=== PATIENT | male | born 1950 | race Caucasian/White ===

== ENCOUNTER 2018-02-15 21:58 | Emergency (ER) | payer MEDICARE, OTHER, SELFPAY ==
[2018-02-15 21:58] VITALS: BP 149/78; PULSE 108; RESP 20; TEMP 36.7; O2SAT 97; BMI 24.7
--- NOTE | 2018-02-15 22:24 | ED.RN ---
NO OLD EKGS IN MUSE.
[2018-02-15 22:39] LABS: Absolute Lymphocyte Count 2.93 X10^3/ul (0.83-4.51); Absolute Neutrophil Count 2.7 X10^3/uL (2.0-7.7); Basophil# 0.06 X10^3/uL; Basophil% 0.9 % (0-1); Eosinophil# 0.22 X10^3/uL; Eosinophils% 3.3 % (0-5); Hematocrit 39.4 % (40-54); Hemoglobin 14.1 g/dl (13.0-16.5); Lymphocyte # 2.93 X10^3/ul (4.0); Lymphocyte % 43.4 % (19-41); Mean Corp Hgb Conc 35.8 g/gl (32-36); Mean Corpuscular Hgb 33.2 pg (27.0-32.0); Mean Corpuscular Volume 92.7 fL (80-94); Mean Platelet Vol. 9.4 fl (6.2-12.0); Monocyte% 11.9 % (0-10); Neutrophil # 2.73 X10^3/uL (2.7-7.7); Neutrophil % 40.4 % (47-70); Platelet Count 228 K/mm3 (150-450); RBC Distribution Width CV 11.8 % (11.6-14.6); RBC Distribution Width SD 39.6 fl (35.1-43.9); Red Blood Count 4.25 M/mm3 (4.6-6.2); White Blood Count 6.8 K/mm3 (4.4-11.0)
[2018-02-15 22:41] LABS: POSITIVE COUNT NO; POSITIVE DIFFERENTIAL NO; POSITIVE MORPHOLOGY NO
[2018-02-15 22:47] LABS: Anion Gap 7 (5-15); BUN 16 mg/dL (7-18); BUN/Creat Ratio 21.9 RATIO (10-20); Calcium,Total 9.1 mg/dL (8.5-10.1); Chloride 95 mmol/L (98-107); Creatinine, Serum 0.73 mg/dL (0.70-1.30); EST Glomerular Filtration Rate 114 mL/min (>60); Est Glom Filt Rate - Afr Amer 138 mL/min (>60); Estimated Creatinine Clearance 104.17 ml/min; Glucose 343 mg/dL (74-106); Sodium Level 132 mmol/L (136-145)
--- NOTE | 2018-02-15 23:25 | RAD_ITS ---
STUDY: X-RAY CHEST REASON FOR EXAM: Male, 67 years old. Chest pain TECHNIQUE: Frontal and lateral views of the chest. COMPARISON: None. FINDINGS: The lungs are clear and expanded. There is no demonstrated pleural abnormality. Normal size heart. Normal mediastinum and belkys. Normal visualized pulmonary arteries. Normal visualized aortic arch and descending thoracic aorta. Normal visualized thoracic spine. Normal visualized ribs, clavicles, and shoulders. There is no demonstrated abnormality of the visualized soft tissue structures of the upper abdomen. RAD/Chest PA and Lateral IMPRESSION: Normal x-ray examination of the chest. Electronically Signed: Raulito Christian MD at 1:15 EDT Tel , Service support ,
[2018-02-15 23:39] LABS: D-Dimer Quantitative (DVT/PE) 0.78 FEU/ug/m (0.27-0.49)
--- NOTE | 2018-02-15 23:41 | ED.RN ---
DR MARTE NOTIFIED OF DDIMER RESULTS
--- NOTE | 2018-02-15 23:50 | CT_ITS ---
STUDY: CTA CHEST REASON FOR EXAM: Male, 67 years old. Chest pain, elevated d-dimer RADIATION DOSAGE (If Supplied By Facility): CTDIvol = ( 12.42 ) mGy, DLP = ( 568.07 ) mGycm TECHNIQUE: The examination was performed with the intravenous administration of 100 ml of Isovue 370 contrast material. Post-processing of the angiographic images was performed, with multiplanar reformation and 3D reconstruction. Individualized dose optimization techniques were used for this CT. COMPARISON: None. FINDINGS: Normal enhancement of the main pulmonary artery and right and left pulmonary arteries. Normal enhancement of the bilateral peripheral pulmonary arteries. There is no demonstrated pulmonary embolism. Normal thoracic aorta and visualized great vessels. There is no demonstrated aortic dissection. Normal heart and pericardium. Normal mediastinum. Normal hilar regions. Normal visualized trachea and bronchi. The lungs are hyper expanded, with flattening of the hemidiaphragms. Noncalcified small triangular nodule right lower lobe 0.4 cm image 86 series 2. Normal pleura. Normal chest wall structures. There are degenerative changes of spine and shoulder joints Normal visualized upper abdomen. CT/CTA Chest W/WO Contrast IMPRESSION: Normal CTA chest examination, without a demonstrated pulmonary embolism or arterial dissection. Small noncalcified nodular density right lower lobe triangular informed, possible scarring. Comparison was studies performed elsewhere or follow-up recommended. CT Follow-Up of Small Pulmonary Nodules Nodule size is average of length and width. Nodule size. Low risk patient. Non smoking history. <4mm No follow-up needed (risk of malignancy <1%) 4-6mm Follow up CT at 12 months, if unchanged, no further imaging needed. 6-8mm Initial follow up at 6-12 month, then at 18-24 months if no changes. > 8mm Follow-up CT at 3, 9, and 24 months, dynamic contrast CT, PET and /or biopsy. Nodule size. High risk patients. Smoking history. <4mm Follow-up 12 months: if unchanged, no further follow-up. 4-6mm Initial follow-up at 6-12 months,then at 18-24 months if no change. 6-8mm Initial follow-up at 3-6months, then at 9-12 and 24 months if no change. >8mm Same as for low risk patient. [employer] STATEMENT Electronically Signed: Marie Child MD at 1:30 EDT , Service support ,
[2018-02-16 00:09] VITALS: BP 165/99; PULSE 77; RESP 15; O2SAT 97
--- NOTE | 2018-02-16 00:09 | EKG12_ITS ---
Test Reason : PALPATATIONS Blood Pressure : / mmHG Vent. Rate : 108 BPM Atrial Rate : 108 BPM P-R Int : 178 ms QRS Dur : 086 ms QT Int : 336 ms P-R-T Axes : 070 049 076 degrees QTc Int : 450 ms Sinus tachycardia with occasional Premature ventricular complexes Possible Left atrial enlargement Borderline ECG Confirmed by ELIECER MICHAUD, JESSICA ([id number]), newspaper or periodical editor KIRA YE ([id number]) on 02/20/2018 3:45:35 PM Referred By: GABRIEL Confirmed By:JESSICA GONZÁLES MD
--- NOTE | 2018-02-16 00:59 | ED.VISSUMM ---
- ER Visit Summary Date of Service: 02/16/18 Chief Complaint: Palpitations History of Present Illness: The patient is a 67 M patient presenting for evaluation secondary to heart palpitations. Patient reports that approximately 6 days ago he was under general anesthesia for oral surgery. Patient reports that today late this afternoon he had a sudden onset heart palpitations. He reports that these are intermittent and have no exacerbating relieving factors. He denies that there is any sort of pain associated with them no shortness of breath or fevers. He denies any sort of weight loss weight gain changes in appetite nausea vomiting or any other infectious signs or symptoms. He does endorse dental pain from his surgery which is been taking [place] for. He denies that he has any history of hypertension diabetes high cholesterol family history of heart disease or smoking. He denies that he is ever had any history of DVT or PE. Physical Examination: Vital signs are within normal limits, patient is afebrile. General: Patient is well-nourished well-developed and in no acute distress. Head: Normocephalic, atraumatic Eyes: Pupils equal round and reactive bilaterally, extra occular motion intact bialterally ENT: Moist mucous membranes, patient has multiple stitches along his gum lines but no evidence of obvious abscess or drainage Neck: Supple, no lymphadenopathy, no JVD, no meningismus CVS: Heart regular rate and rhythm, extrasystoles are noted, no murmurs, rubs or gallops, radial pulses 2+ bilaterally Resp: Respirations nondistressed, lung sounds clear bilaterally Abdomen: Soft, nontender, nondistended, no palpable masses, normal bowel sounds Back: Nontender Extremities: Nontender, atraumatic, active full range of motion, no peripheral edema Skin: warm, no rashes, no petechia Neuro: Alert and oriented x 4, CN 2-12 intact, no lateralizing neurological defecits Psyc: Normal affect Test Results: Sinus rhythm of [address] segments, normal T waves, large P waves indicating atrial enlargement and occasional PVCs no evidence of acute ischemia or arrhythmia. CBC chemistry troponin unremarkable, d-dimer found to be elevated. CT angiogram of the chest found to be negative for PE but does show evidence of a pulmonary nodule Emergency Department Course and Treatment: Patient presented for evaluation secondary to palpitations. Patient's workup was unremarkable except for that he was having frequent PVCs on telemetry monitoring. He did have an elevated d-dimer which was obtained secondary to his recent surgery, so a CT angiogram was performed to rule out PE and was found to be negative. It did show a pulmonary nodule which the patient was informed of. Patient continues to be symptomatic with his PVCs, but is not having any runs of nonsustained V. tach or any couplets. I discussed the patient's case with cardiology who recommended placing the patient on a low-dose of beta-curry and follow-up as an outpatient. Patient was given a dose of metoprolol, and will be discharged with a prescription. Disposition: Discharge Impression: 1. Symptomatic PVCs 2. Incidental pulmonary nodule This note was generated with [employer] dictation software. It may contain incorrect words, spelling, and punctuation that were not noted in review of the chart prior to signing ED Disposition - Plan for ED Patient: Disposition: Home or Assisted Living Chief Complaint: Palpitations Diagnosis: Frequent PVCs Instructions: Premature Ventricular Contractions Prescriptions: Metoprolol Tartrate 25 mg PO BID #28 tab Referrals: Peyman Fernandez MD [STAFF PHYSICIAN] - As soon as possible
[2018-02-16 01:07] VITALS: BP 140/71; PULSE 81; RESP 12; O2SAT 95
[2018-02-16 02:48] VITALS: BP 145/70; PULSE 90; RESP 13; O2SAT 96
[2018-02-16] MEDS: Metoprolol Tartrate 25 MG Tablet PO (03:05)
== END 2018-02-16 03:06 | disposition home or self-care (01) ==
PROVIDERS: Emergency Provider Emergency Medicine
DX: I49.3 Ventricular premature depolarization (principal); R91.1 Solitary pulmonary nodule; K08.89 Other specified disorders of teeth and supporting structures; Z98.890 Other specified postprocedural states; Z79.2 Long term (current) use of antibiotics; Z79.891 Long term (current) use of opiate analgesic
CPT/HCPCS: 71046; 71275; 80048; 84484; 85025; 85379; 93005; 99282; Q9967; A4216

== ENCOUNTER → 2018-04-05 08:06 | Outpatient (CLI) | payer MEDICARE, OTHER, SELFPAY ==
[2018-04-05 10:37] LABS: AST(SGOT) 14 U/L (15-37); Alanine Aminotransfer ALT/SGPT 21 U/L (16-61); Albumin, Serum 3.5 g/dL (3.2-5.0); Alkaline Phosphatase 64 U/L (45-117); Anion Gap 5 (5-15); BUN 11 mg/dL (7-18); Calcium,Total 8.6 mg/dL (8.5-10.1); Chloride 101 mmol/L (98-107); Cholesterol 239 mg/dL (200); Creatinine, Serum 0.73 mg/dL (0.70-1.30); EST Glomerular Filtration Rate 114 mL/min (>60); Est Glom Filt Rate - Afr Amer 138 mL/min (>60); Globulin 3.5 g/dL (2.2-4.2); Glucose 254 mg/dL (74-106); High Density Lipoprotein 62 mg/dL; Potassium 4.2 mmol/L (3.5-5.1); Sodium Level 137 mmol/L (136-145); Triglycerides 113 mg/dL; Very Low Density Lipoprotein 23 mg/dL (5-40)
--- OUTSIDE RECORDS SUMMARY | 2018-05-31 13:11 | XMS RPT_ITS ---
:1950 Author Organization OHIP Care Team Providers Name Role Phone Primay Care Physicia, No Primary Care Unavailable Walter Hernandez Attending Unavailable Rayray Martinez Attending Unavailable Rayray Martinez Primary Care Unavailable PROBLEMS PROBLEMS No Problem Records FoundPROCEDURES PROCEDURES No Procedure Records FoundRESULTS RESULTS COMPREHENSIVE METABOLIC Collected: 04/05/2018 Status: F [facility]07 AM [facility] REPOSITORY TYPE CODE TESTS RESULT OUT OF RANGE REFERENCE UNITS LAB L501.0100 74-106 mg/dL High GLU 254 Result Comment: Glucose result greater than or equal to 200 mg/dL suggests DIABETES MELLITUS per A.D.A. criteria. Please note revised GLUCOSE reference range effective 2017. LAB L501.1000 7-18 mg/dL Normal BUN 11 LAB L501.1100 0.70-1.30 mg/dL Normal CREAT,SERUM 0.73 Result Comment: The validity of the calculated GFR AND GFRAA in patients over 70 years has not been determined. Clinical correlation is essential. LAB L501.1110 >60 mL/min Normal EST GFR 114 Result Comment: Non- GFR Calc LAB L501.1115 >60 mL/min Normal EST GFR - AA 138 Result Comment: GFR Calc LAB L501.1300 10-20 RATIO Normal BUN/CRE 15.0 LAB L501.1500 6.4-8.2 g/dL T Normal PROT 7.0 LAB L501.1800 3.2-5.0 g/dL Normal ALB 3.5 LAB L501.1950 2.2-4.2 g/dL Normal GLOB 3.5 LAB L501.2000 0.9-2.4 RATIO Normal A/G 1.0 LAB L501.2200 8.5-10.1 mg/dL CA Normal 8.6 LAB L501.4100 15-37 U/L Low AST 14 LAB L501.4305 45-117 U/L Normal ALK P 64 LAB L501.4405 16-61 U/L Normal ALT 21 LAB L501.4600 0.20-1.00 mg/dL T Normal BILI 0.60 LAB L501.5300 136-145 mmol/L NA Normal 137 LAB L501.5600 3.5-5.1 mmol/L K Normal 4.2 LAB L501.5900 98-107 mmol/L CL Normal 101 LAB L501.6100 21.0-32.0 mmol/L Normal CO2 31.0 LAB L501.6200 5-15 Normal GAP 5 Performed By: #### L500.4050, L500.4100, L501.9520, L509.3000 #### [facility] [address] [facility]. [place], [place], [id number] LIPID PROFILE Collected: 04/05/2018 Status: F Source: [facility] 8:07 AM [facility] REPOSITORY TYPE CODE TESTS RESULT OUT OF RANGE REFERENCE UNITS LAB L501.4900 200 mg/dL High CHOL 239 Result Comment: <200 mg/dL Desirable 200-240 mg/dL Borderline >240 mg/dL High Risk LAB L501.5000 mg/dL Normal TRIG 113 Result Comment: The drugs N-Acetylcysteine and Metamizole may falsely depress this assay. Serum Triglycerides Reference Interval Normal <150 mg/dL Borderline high 150 - 199 mg/dL High 200 - 499 mg/dL Very High > or = 500 mg/dL LAB L501.6400 mg/dL Normal HDL 62 Result Comment: The drugs N-Acetylcysteine and Metamizole may falsely depress this assay. Reference Range HDL <40 mg/dL Low HDL Cholesterol HDL >or= 60 mg/dL High HDL Cholesterol LAB L501.6500 0-130 mg/dL High LDL 154 LAB L501.6600 5-40 mg/dL Normal VLDL 23 Performed By: #### L500.4050, L500.4100, L501.9520, L509.3000 #### [facility] [address] [facility] [place], [address] THYROID STIM HORMONE Collected: 04/05/2018 Status: F Source: [facility] ([facility]) 8:07 AM [facility] REPOSITORY TYPE CODE TESTS RESULT OUT OF RANGE REFERENCE UNITS LAB L501.9520 0.358-3.74 uIU/mL Normal TSH 2.80 Performed By: #### L500.4050, L500.4100, L501.9520, L509.3000 #### [facility] [address] [facility] [place], [address] TESTOSTERONE, SERUM TOTAL Collected: 04/05/2018 Status: F Source: [facility] 8:07 AM [facility] REPOSITORY TYPE CODE TESTS RESULT OUT OF REFERENCE UNITS RANGE LAB L509.3000 ng/dL Testosterone Normal 288.33 Result Comment: NORMAL REFERENCE RANGES MALE AGE <50 123.06 - 813.86 ng/dL MALE AGE >50 89.98 - 780.10 ng/dL FEMALE PREMENOPAUSE AGE 21 - 60 9.01 - 47.94 ng/dL FEMALE POSTMENOPAUSE AGE 45 - 89 <7.00 - 45.62 ng/dL REFERENCE RANGE AND METHODOLOGY CHANGED 04/27/2017 Performed By: #### L500.4050, L500.4100, L501.9520, L509.3000 #### [facility] [address] [facility] [place], [address] 12 LEAD ELECTROCARDIOGRAM Observed: 02/20/2018 Status: F Source: [facility] 3:45 PM [facility] REPOSITORY [facility] Cardiovascular Services [address] [place] [address] 12 Lead EKG 02/15/18 2202 MR#: [id number] Acct: [id number] Name: AMINA CROWELL Rep #: [id number] : 1950 67 From: Nikolai Gonzáles MD Attending Dr: Status: DEP ER Ordering Dr: Walter Hernandez MD Date: 02/16/18 Location: ED Sex: M C Admitted: Test Reason : PALPATATIONS Blood Pressure : / mmHG Vent. Rate : 108 BPM Atrial Rate : 108 BPM P-R Int : 178 ms QRS Dur : 086 ms QT Int : 336 ms P-R-T Axes : 070 049 076 degrees QTc Int : 450 ms Sinus tachycardia with occasional Premature ventricular complexes Possible Left atrial enlargement Borderline ECG Confirmed by ELIECER MICHAUD, NIKOLAI ([id number]), editorial clerk KIRA YE ([id number]) on 02/20/2018 3:45:35 PM Referred By: LD Confirmed By:NIKOLAI GONZÁLES MD 02/20/18 1545 Date Nikolai Gonzáles MD CC: No Primary Care Physician; Walter Hernandez Signed EMERGENCY DEPARTMENT Observed: 02/16/2018 Status: F Source: [facility] SUMMARY 7:01 AM [facility] Medical Records Department [address] [place] [address] Emergency Department Summary 02/16/18 0059 MR#: [id number] Acct: [id number] Name: AMINA CROWELL Rep #: [id number] : 1950 67 From: Walter Hernandez MD PCP: Care Physician, No Primary Status: DEP ER - ER Visit Summary Date of Service: 02/16/18 Chief Complaint: Palpitations History of Present Illness: The patient is a 67 M patient presenting for evaluation secondary to heart palpitations. Patient reports that approximately 6 days ago he was under general anesthesia for oral surgery. Patient reports that today late this afternoon he had a sudden onset heart palpitations. He reports that these are intermittent and have no exacerbating relieving factors. He denies that there is any sort of pain associated with them no shortness of breath or fevers. He denies any sort of weight loss weight gain changes in appetite nausea vomiting or any other infectious signs or symptoms. He does endorse dental pain from his surgery which is been taking [place] for. He denies that he has any history of hypertension diabetes high cholesterol family history of heart disease or smoking. He denies that he is ever had any history of DVT or PE. Physical Examination: Vital signs are within normal limits, patient is afebrile. General: Patient is well-nourished well-developed and in no acute distress. Head: Normocephalic, atraumatic Eyes: Pupils equal round and reactive bilaterally, extra occular motion intact bialterally ENT: Moist mucous membranes, patient has multiple stitches along his gum lines but no evidence of obvious abscess or drainage Neck: Supple, no lymphadenopathy, no JVD, no meningismus CVS: Heart regular rate and rhythm, extrasystoles are noted, no murmurs, rubs or gallops, radial pulses 2+ bilaterally Resp: Respirations nondistressed, lung sounds clear bilaterally Abdomen: Soft, nontender, nondistended, no palpable masses, normal bowel sounds Back: Nontender Extremities: Nontender, atraumatic, active full range of motion, no peripheral edema Skin: warm, no rashes, no petechia Neuro: Alert and oriented x 4, CN 2-12 intact, no lateralizing neurological defecits Psyc: Normal affect Test Results: Sinus rhythm of [address] segments, normal T waves, large P waves indicating atrial enlargement and occasional PVCs no evidence of acute ischemia or arrhythmia. CBC chemistry troponin unremarkable, d-dimer found to be elevated. CT angiogram of the chest found to be negative for PE but does show evidence of a pulmonary nodule Emergency Department Course and Treatment: Patient presented for evaluation secondary to palpitations. Patient's workup was unremarkable except for that he was having frequent PVCs on telemetry monitoring. He did have an elevated d-dimer which was obtained secondary to his recent surgery, so a CT angiogram was performed to rule out PE and was found to be negative. It did show a pulmonary nodule which the patient was informed of. Patient continues to be symptomatic with his PVCs, but is not having any runs of nonsustained V. tach or any couplets. I discussed the patient's case with cardiology who recommended placing the patient on a low-dose of beta-curry and follow-up as an outpatient. Patient was given a dose of metoprolol, and will be discharged with a prescription. Disposition: Discharge Impression: 1. Symptomatic PVCs 2. Incidental pulmonary nodule This note was generated with Alticast dictation software. It may contain incorrect words, spelling, and punctuation that were not noted in review of the chart prior to signing ED Disposition - Plan for ED Patient: Disposition: Home or Assisted Living Chief Complaint: Palpitations Diagnosis: Frequent PVCs Instructions: Premature Ventricular Contractions Prescriptions: Metoprolol Tartrate 25 mg PO BID #28 tab Referrals: Peyman Fernandez MD [STAFF PHYSICIAN] - As soon as possible What to do if you have Problems For any increased pain, shortness of breath, bleeding, nausea or vomiting, chest pain, or any unexpected problems, contact your Primary Care Provider. Call [facility] ([phone]) or report to the closest Emergency Room. Call 911 if necessary. 02/16/18 0701 <Electronically signed by Walter Hernandez MD> Date Walter Hernandez MD Cosigner Signature (If Indicated): Date CC: No Primary Care Physician CTA CHEST W/WO Observed: 02/15/2018 Status: F Source: [facility] CONTRAST 11:50 PM [facility] REPOSITORY [facility] Imaging Services [address] [place] [address] CTA Chest W/WO Contrast MR#: [id number] Acct: [id number] Name: AMINA CROWELL Rep #: [id number] : 1950 M 67 From: Marie Child MD PCP: Care Physician, No Primary Status: REG ER Study: CTA Chest W/WO Contrast Date of Exam: 02/15/18 Exam# [id number] Ordering Dr: Walter Hernandez MD STUDY: CTA CHEST REASON FOR EXAM: Male, 67 years old. Chest pain, elevated d-dimer RADIATION DOSAGE (If Supplied By Facility): CTDIvol = ( 12.42 ) mGy, DLP = ( 568.07 ) mGycm TECHNIQUE: The examination was performed with the intravenous administration of 100 ml of Isovue 370 contrast material. Post-processing of the angiographic images was performed, with multiplanar reformation and 3D reconstruction. Individualized dose optimization techniques were used for this CT. COMPARISON: None. FINDINGS: Normal enhancement of the main pulmonary artery and right and left pulmonary arteries. Normal enhancement of the bilateral peripheral pulmonary arteries. There is no demonstrated pulmonary embolism. Normal thoracic aorta and visualized great vessels. There is no demonstrated aortic dissection. Normal heart and pericardium. Normal mediastinum. Normal hilar regions. Normal visualized trachea and bronchi. The lungs are hyper expanded, with flattening of the hemidiaphragms. Noncalcified small triangular nodule right lower lobe 0.4 cm image 86 series 2. Normal pleura. Normal chest wall structures. There are degenerative changes of spine and shoulder joints Normal visualized upper abdomen. CT/CTA Chest W/WO Contrast IMPRESSION: Normal CTA chest examination, without a demonstrated pulmonary embolism or arterial dissection. Small noncalcified nodular density right lower lobe triangular informed, possible scarring. Comparison was studies performed elsewhere or follow-up recommended. CT Follow-Up of Small Pulmonary Nodules Nodule size is average of length and width. Nodule size. Low risk patient. Non smoking history. <4mm No follow-up needed (risk of malignancy <1%) 4-6mm Follow up CT at 12 months, if unchanged, no further imaging needed. 6-8mm Initial follow up at 6-12 month, then at 18-24 months if no changes. > 8mm Follow-up CT at 3, 9, and 24 months, dynamic contrast CT, PET and /or biopsy. Nodule size. High risk patients. Smoking history. <4mm Follow-up 12 months: if unchanged, no further follow-up. 4-6mm Initial follow-up at 6-12 months,then at 18-24 months if no change. 6-8mm Initial follow-up at 3-6months, then at 9-12 and 24 months if no change. >8mm Same as for low risk patient. [employer] STATEMENT Electronically Signed: Marie Child MD at 1:30 EDT , Service support , CC: No Primary Care Physician; Walter Hernandez Manager Pest: Signed CHEST PA AND LATERAL Observed: 02/15/2018 Status: F Source: [facility] 11:14 PM [facility] REPOSITORY [facility] Imaging Services [address] [place], [place] [address] [address] Chest PA and Lateral MR#: [id number] Acct: [id number] Name: AMINA CROWELL Rep #: [id number] : 1950 M 67 From: Raulito Christian MD PCP: Care Physician, No Primary Status: REG ER Study: Chest PA and Lateral Date of Exam: 02/15/18 Exam# [id number] Ordering Dr: Walter Hernandez MD STUDY: X-RAY CHEST REASON FOR EXAM: Male, 67 years old. Chest pain TECHNIQUE: Frontal and lateral views of the chest. COMPARISON: None. FINDINGS: The lungs are clear and expanded. There is no demonstrated pleural abnormality. Normal size heart. Normal mediastinum and belkys. Normal visualized pulmonary arteries. Normal visualized aortic arch and descending thoracic aorta. Normal visualized thoracic spine. Normal visualized ribs, clavicles, and shoulders. There is no demonstrated abnormality of the visualized soft tissue structures of the upper abdomen. RAD/Chest PA and Lateral IMPRESSION: Normal x-ray examination of the chest. Electronically Signed: Raulito Christian MD at 1:15 EDT Tel , Service support , CC: No Primary Care Physician; Walter Hernandez Manager Pest: Signed CBC W/DIFF, AUTOMATED Collected: 02/15/2018 Status: F Source: [facility] 10:24 PM [facility] REPOSITORY TYPE CODE TESTS RESULT OUT OF RANGE REFERENCE UNITS LAB L100.1000 4.4-11.0 K/mm3 Normal WBC 6.8 LAB L100.1200 4.6-6.2 M/mm3 Low RBC 4.25 LAB L100.1300 13.0-16.5 g/dl Normal HGB 14.1 LAB L100.1400 40-54 % Low HCT 39.4 LAB L100.1500 80-94 fL Normal MCV 92.7 LAB L100.1600 27.0-32.0 pg High MCH 33.2 LAB L100.1700 32-36 g/gl Normal MCHC 35.8 LAB L100.1810 11.6-14.6 % Normal RDW CV 11.8 LAB L100.1820 35.1-43.9 fl Normal RDW SD 39.6 LAB L100.1900 150-450 K/mm3 Normal PLT 228 LAB L100.2000 6.2-12.0 fl Normal MPV 9.4 LAB L100.2100 47-70 % Low NEUT% 40.4 LAB L100.2200 19-41 % High LY% 43.4 LAB L100.2300 0-10 % High MONO% 11.9 LAB L100.2400 0-5 % Normal EO% 3.3 LAB L100.2500 0-1 % Normal BASO% 0.9 LAB L100.2550 0.0-0.9 % Normal IM GRAN % 0.100 Result Comment: IG% - Immature Granulocytes (promyelocytes, myelocytes and metamyelocytes) > 1% indicates that a LEFT SHIFT is Present. LAB L100.2620 2.0-7.7 X10 3/uL Normal Absolute Neut 2.7 LAB L100.2720 0.83-4.51 X10 3/ul Normal Absolute Lymph 2.93 Performed By: #### L100.0100 #### [facility] [address] [place], [place], [id number] BASIC METABOLIC Collected: 02/15/2018 Status: F Source: [facility] PROFILE (BMP) 10:24 PM [facility] REPOSITORY TYPE CODE TESTS RESULT OUT OF RANGE REFERENCE UNITS LAB L501.0100 74-106 mg/dL High GLU 343 Result Comment: Glucose result greater than or equal to 200 mg/dL suggests DIABETES MELLITUS per A.D.A. criteria. Please note revised GLUCOSE reference range effective 2017. LAB L501.1000 7-18 mg/dL Normal BUN 16 LAB L501.1100 0.70-1.30 mg/dL Normal CREAT,SERUM 0.73 Result Comment: The validity of the calculated GFR AND GFRAA in patients over 70 years has not been determined. Clinical correlation is essential. LAB L501.1110 >60 mL/min Normal EST GFR 114 Result Comment: Non- GFR Calc LAB L501.1115 >60 mL/min Normal EST GFR - AA 138 Result Comment: GFR Calc LAB L501.1255 ml/min Normal Estimated CRCL 104.17 LAB L501.1300 10-20 RATIO High BUN/CRE 21.9 LAB L501.2200 8.5-10 mg/dL .1 CA Normal 9.1 LAB L501.5300 136-14 mmol/L Low 5 NA 132 LAB L501.5600 3.5-5. mmol/L 1 K Normal 4.0 LAB L501.5900 98-107 mmol/L Low CL 95 LAB L501.6100 21.0-3 mmol/L 2.0 CO2 Normal 30.0 LAB L501.6200 5-15 GAP Normal 7 Performed By: #### L500.2500, L501.4010 #### [facility] [address] [place], [address] TROPONIN-I Collected: 02/15/2018 Status: F Source: [facility] 10:24 PM [facility] REPOSITORY TYPE CODE TESTS RESULT OUT OF RANGE REFERENCE UNITS LAB L501.4010 <0.045 ng/mL Normal < 0.015 TROPONIN-I Result Comment: TROPONIN-I EXPECTED VALUES <0.045 Negative 0.045 - 0.590 Consistent with Cardiac Damage > OR = 0.600 Critical Value Not every elevated troponin is indicative of [place]. These values should be used with clinical judgement in examining the patient's clinical picture for diagnosis. To establish a diagnosis of [place] versus myocardial injury, there must be a demonstrated rise and/or fall in the troponin values, in addition to ischemic symptoms, EKG changes, new regional wall motion abnormality, and/or angiographical evidence. PLEASE NOTE: REFERENCE RANGES EDITED 17 Performed By: #### L500.2500, L501.4010 #### [facility] [address] [place], [address] D-DIMER QUANTITATIVE Collected: 02/15/2018 Status: F Source: AL[facility] (DVT/PE) 10:24 PM [facility] REPOSITORY TYPE CODE TESTS RESULT OUT OF RANGE REFERENCE UNITS LAB L300.8000 0.27-0.49 FEU/ug/m High alert D-DIMER 0.78 QUANT Result Comment: D-Dimer ELEVATED (>0.49): Additional studies and clinical assessments are indicated to conclude diagnosis of: Deep Vein Thrombosis (DVT) or Pulmonary Embolism (PE) CRITICAL VALUE VERIFIED. [facility]ULID[facility] RESULTS READ BACK BY SAME . Performed By: #### L300.8000 #### [facility] [address] [place], [address] ALLERGIES ALLERGIES DATE TYPE / CODE NAME / CODE REACTION SEVERITY SOURCE 02/15/2018 Drug bee venom Swelling Unknown [facility] Allergy/4160 protein ([facility] [address](SNOMED bee)/[id number] Repository CT) 5(RXNORM) ENCOUNTERS ENCOUNTERS ADMIT/DISCHARGE ACCOUNT ADMITTING ENCOUNTER LOCATION SOURCE NUMBER CLASS 04/05/2018 [id number] Ambulatory [facility] 8 [facility] ing:MFPLAB Repository 02/15/2018/ [id number] Emergency [facility] 8 0 [facility] ing:ED Repository PAYERS PAYERS ENCOUNTER GUARANTOR PAYER SUBSCRIBER SOURCE 04/05/2018 Amina Kirby Primary AMINA E [place] [id number] Insurance:MEDICARE CJ: [facility] PART A [id number] Number: Repository [address]Nln: [phone] [id number] [phone] (HP) Date:2018-04-05 04/05/2018 Secondary AMINA E [place] Insurance:MEDICAL HARTZLERDOB: [facility] [id number] Hospital Number: Repository [id number] Date:[id number] [address]EX: 04/05/2018 Tertiary NOT GIVENUNK [place] Insurance:SELF PAY [facility] Number: Effective Repository Date:2018-04-05 02/15/2018 Amina E Primary AMINA E [place] [id number] Insurance:MEDIC[facility] [id number] Number: Repository [id number]: [phone] [id number] [phone] () Date:2018-02-15 02/15/2018 Secondary AMINA E [place] Insurance:MEDICAL HARTZLERDOB: [facility] [id number] Hospital Number: Repository [id number] Date:[id number] [address]YN: 02/15/2018 Tertiary NOT GIVENUNK Alis Insurance:SELF PAY [facility] Number: Effective Repository Date:2018-02-15
== END ==
PROVIDERS: Family Provider Family Medicine; PCP Family Medicine; Visit Provider Family Medicine
DX: E11.9 Type 2 diabetes mellitus without complications (principal)
CPT/HCPCS: 36415; 80053; 80061; 84403; 84443

== ENCOUNTER 2019-04-29 18:20 | Emergency (ER) | payer MEDICARE, OTHER, SELFPAY ==
[2019-04-29 18:22] VITALS: BP 151/68; PULSE 86; RESP 18; TEMP 36.6; O2SAT 96; BMI 27.4
--- NOTE | 2019-04-29 18:34 | ED.VISSUMM ---
- ER Visit Summary Date of Service: 04/29/19 Chief Complaint: Constipation History of Present Illness: The patient is a 69 M who presents with constipation for the past 5 days. Patient states he has not had a bowel movement in the last 5 days. Patient states he does have some irritation in his left upper quadrant of his abdomen when he rubs it. Patient denies any nausea or vomiting. Patient denies any blood in his stool. Patient denies any straining. Patient denies any dysuria or hematuria. Patient denies any fevers or chills. Physical Examination: Vital signs are stable. Patient is afebrile. Patient is in no acute distress. Oral mucosa is pink and moist. Neck is supple. Trachea is midline. There is no JVD. Heart was regular rate and rhythm. Lungs are clear and equal bilaterally. Abdomen is soft. Bowel sounds are normal. There is no tenderness. There is no guarding or rebound noted. Cranial nerves II through XII are intact. There are no focal motor or sensory deficits noted. Test Results: Abdominal x-rays were obtained. There is moderate amount of stool throughout the colon. There is no evidence of obstruction. This was interpreted by the radiologist and myself. Emergency Department Course and Treatment: Patient was offered an enema. Patient would prefer to go home and take laxatives instead. Patient was given a prescription for MiraLAX. Patient was instructed to follow-up with his primary care physician in 5 to 7 days. Patient was instructed to eat a high-fiber diet. Patient was instructed to return if worse in any way. Patient understood and was agreeable with the plan. All questions were answered. Disposition: Discharge home Impression: Constipation This note was generated with Dial[employer] dictation software. It may contain incorrect words, spelling, and punctuation that were not noted in review of the chart prior to signing ED Disposition - Plan for ED Patient: Disposition: Home or Assisted Living Diagnosis: Constipation Instructions: CONSTIPATION (Adult) Prescriptions: Polyethylene Glycol 3350 [Miralax] 17 gm PO DAILY #5 packet Prescription Printed Referrals: Luis Martinez MD [Primary Care Provider] - 5-7 Days
--- NOTE | 2019-04-29 19:23 | RAD_ITS ---
STUDY: X-RAY - ABDOMEN/PELVIS REASON FOR EXAM: Male, 69 years old. CONSTIPATION X 5 DAYS, DENIES N/V TECHNIQUE: Two AP supine views of the abdomen and pelvis. COMPARISON: None. FINDINGS: The lung bases are not in the zaute-sa-ggcl of this study. There is an average amount of colonic stool. There is no demonstrated free abdominal air. The visualized liver, spleen and kidneys are grossly normal in size and morphology. Normal soft tissue structures. Normal visualized osseous structures. RAD/Abdomen Single View IMPRESSION: Unremarkable study. Average amount of colonic stool. Electronically Signed: Fab Vela MD at 19:43 EST , Service support ,
[2019-04-29 20:26] VITALS: PULSE 91; RESP 15; O2SAT 96
== END 2019-04-29 21:06 | disposition home or self-care (01) ==
PROVIDERS: Emergency Provider Emergency Medicine; Family Provider Family Medicine; PCP Family Medicine
DX: K59.00 Constipation, unspecified (principal)
CPT/HCPCS: 74018; 99282

== ENCOUNTER → 2019-05-30 15:02 | Outpatient (CLI) | payer MEDICARE, SELFPAY ==
[2019-05-30 17:35] LABS: Absolute Lymphocyte Count 2.29 X10^3/uL (0.83-4.51); Absolute Neutrophil Count 3.3 X10^3/uL (2.0-7.7); Basophil# 0.08 X10^3/uL; Basophil% 1.2 % (0-1); Eosinophil# 0.19 X10^3/uL; Hemoglobin 12.8 g/dL (13.0-16.5); Lymphocyte # 2.29 X10^3/ul (4.0); Lymphocyte % 35.7 % (19-41); Mean Corp Hgb Conc 33.7 g/dL (32-36); Mean Corpuscular Hgb 32.1 pg (27.0-32.0); Mean Corpuscular Volume 95.2 fL (80-94); Mean Platelet Vol. 9.7 fl (6.2-12.0); Monocyte# 0.59 X10^3/uL; Monocyte% 9.2 % (0-10); NRBC Flagged by Analyzer 0 % (0-5); Neutrophil # 3.25 X10^3/uL (2.7-7.7); Neutrophil % 50.7 % (47-70); Platelet Count 248 K/mm3 (150-450); RBC Distribution Width CV 11.8 % (11.6-14.6); RBC Distribution Width SD 40.9 fl (35.1-43.9); Red Blood Count 3.99 M/mm3 (4.6-6.2); White Blood Count 6.4 K/mm3 (4.4-11.0)
[2019-05-30 17:56] LABS: ALB/GLOB Ratio 0.9 RATIO (0.9-2.4); AST(SGOT) 16 U/L (15-37); Alanine Aminotransfer ALT/SGPT 23 U/L (16-61); Albumin, Serum 3.6 g/dL (3.2-5.0); Alkaline Phosphatase 56 U/L (45-117); Anion Gap 4 (5-15); BUN 16 mg/dL (7-18); BUN/Creat Ratio 17.3 RATIO (10-20); Calcium,Total 9.2 mg/dL (8.5-10.1); Chloride 103 mmol/L (98-107); Cholesterol 211 mg/dL (200); Creatinine, Serum 0.93 mg/dL (0.70-1.30); EST Glomerular Filtration Rate 87 mL/min (>60); Erythrocyte Sedimentation Rate 16 mm/hr (0-20); Est Glom Filt Rate - Afr Amer 105 mL/min (>60); Globulin 3.8 g/dL (2.2-4.2); Glucose 286 mg/dL (74-106); High Density Lipoprotein 51 mg/dL; Protein, Total 7.4 g/dL (6.4-8.2); Sodium Level 137 mmol/L (136-145); Triglycerides 212 mg/dL; Very Low Density Lipoprotein 42 mg/dL (5-40)
== END ==
PROVIDERS: PCP Family Medicine; Referring Provider Family Medicine; Visit Provider Family Medicine
DX: E11.9 Type 2 diabetes mellitus without complications (principal); R19.5 Other fecal abnormalities
CPT/HCPCS: 36415; 80053; 80061; 85025; 85652

== ENCOUNTER 2020-08-21 03:13 | Emergency (ER) | payer MEDICARE, OTHER, SELFPAY ==
[2020-08-21 03:13] VITALS: BP 177/91; PULSE 98; RESP 18; TEMP 36.3; O2SAT 100; BMI 26.9
[2020-08-21 03:31] LABS: Bedside Glucose 246 mg/dL (70-110)
[2020-08-21] MEDS: Famotidine 200 MG/20 ML MDV 20 MG in 0.9% Normal Saline (Pres. free 8 ML 300 MG IV (03:44)
[2020-08-21] MEDS: DiphenhydrAMINE 50 MG/ML Syringe 25 MG IV (03:44)
[2020-08-21] MEDS: MethylPREDNISolone 125 MG/2 ML Vial IV (03:44)
--- NOTE | 2020-08-21 04:13 | ED.DCSUM_ITS ---
- ER Visit Summary Date of Service: 08/21/20 Chief Complaint: Rash History of Present Illness: The patient is a 70 M presenting with rash, poison oak. Patient states this started approximately 1 week ago. He was seen by his primary care physician on Tuesday. He states he was given a shot in the office and started on prednisone which he started on Tuesday. He complains of itching and continued rash on his left arm and leg. He was concerned this morning because he felt like his lips may be starting to swell. Denies tongue swelling or difficulty swallowing. Denies other complaints. Physical Examination: Vitals are stable. Patient is afebrile. Alert no acute distress. HEENT exam is unremarkable. No lip or tongue swelling. No pharyngeal edema Neck is supple. Lungs are clear and equal bilaterally. Heart is regular rate and rhythm. Abdomen is soft nontender nondistended. Extremities rash consistent with poison oak left forearm, left thigh Skin is warm and dry. No focal neurologic deficit. Remainder of exam is unremarkable. Emergency Department Course and Treatment: Patient was given Solu-Medrol, Benadryl, Pepcid. He was observed in the ED. On reevaluation, he is feeling much improved. He is advised to take Benadryl as needed for itching. He will restart his prednisone prescription tomorrow. Advised to return to the ED for worsening complaints. Advised to follow up with primary care physician. Disposition: Discharge home Impression: Poison oak This note was generated with [employer] dictation software. It may contain incorrect words, spelling, and punctuation that were not noted in review of the chart prior to signing ED Disposition - Plan for ED Patient: Instructions: ED Poison [place] Rash Referrals: Luis Martinez MD [Primary Care Provider] -
[2020-08-21 04:25] VITALS: BP 155/78; PULSE 70; RESP 16; O2SAT 98
== END 2020-08-21 04:25 | disposition home or self-care (01) ==
PROVIDERS: Emergency Provider Emergency Medicine; PCP Family Medicine
DX: L23.7 Allergic contact dermatitis due to plants, except food (principal); E11.9 Type 2 diabetes mellitus without complications; Z79.4 Long term (current) use of insulin
CPT/HCPCS: 82962; 96374; 96375; 99283; A4216; J3490

== ENCOUNTER → 2021-04-16 10:53 | Outpatient (CLI) | payer MEDICARE, OTHER, SELFPAY ==
[2021-04-16 12:51] LABS: ALB/GLOB Ratio 0.9 RATIO (0.9-2.4); AST(SGOT) 12 U/L (15-37); Alanine Aminotransfer ALT/SGPT 22 U/L (16-61); Albumin, Serum 3.5 g/dL (3.2-5.0); Alkaline Phosphatase 62 U/L (45-117); Anion Gap 5 (5-15); BUN 14 mg/dL (7-18); BUN/Creat Ratio 18.7 RATIO (10-20); Chloride 103 mmol/L (98-107); Creatinine, Serum 0.75 mg/dL (0.70-1.30); EST Glomerular Filtration Rate 110 mL/min (>60); Est Glom Filt Rate - Afr Amer 133 mL/min (>60); Globulin 4.1 g/dL (2.2-4.2); Glucose 145 mg/dL (74-106); PSA,Total - Annual Screen 0.18 ng/mL (0.00-4.00); Potassium 4.4 mmol/L (3.5-5.1); Protein, Total 7.6 g/dL (6.4-8.2); Sodium Level 136 mmol/L (136-145); Thyroid Stim Hormone (TSH) 2.58 uIU/mL (0.358-3.74)
== END ==
PROVIDERS: PCP Family Medicine; Referring Provider Family Medicine; Visit Provider Family Medicine
DX: E11.9 Type 2 diabetes mellitus without complications (principal); Z12.5 Encounter for screening for malignant neoplasm of prostate
CPT/HCPCS: 36415; 80053; 84153; 84443; G0103

== ENCOUNTER → 2021-12-17 | Outpatient (CLI) | payer MEDICARE, OTHER, SELFPAY ==
[2021-12-17 12:08] LABS: Hematocrit 39.5 % (40-54); Hemoglobin 14.3 g/dL (13.0-16.5); Mean Corp Hgb Conc 36.2 g/dL (32-36); Mean Corpuscular Hgb 34.3 pg (27.0-32.0); Mean Corpuscular Volume 94.7 fL (80-94); Mean Platelet Vol. 9.6 fl (6.2-12.0); Platelet Count 265 K/mm3 (150-450); RBC Distribution Width CV 11.8 % (11.6-14.6); Red Blood Count 4.17 M/mm3 (4.6-6.2); White Blood Count 6.2 K/mm3 (4.4-11.0)
[2021-12-17 12:28] LABS: ALB/GLOB Ratio 0.8 RATIO (0.9-2.4); AST(SGOT) 19 U/L (15-37); Alanine Aminotransfer ALT/SGPT 21 U/L (16-61); Albumin, Serum 3.6 g/dL (3.2-5.0); Alkaline Phosphatase 65 U/L (45-117); Anion Gap 6 (5-15); BUN 16 mg/dL (7-18); BUN/Creat Ratio 20.5 RATIO (10-20); Calcium,Total 9.3 mg/dL (8.5-10.1); Chloride 103 mmol/L (98-107); Creatinine, Serum 0.78 mg/dL (0.70-1.30); EST Glomerular Filtration Rate 105 mL/min (>60); Est Glom Filt Rate - Afr Amer 127 mL/min (>60); Globulin 4.3 g/dL (2.2-4.2); Glucose 177 mg/dL (74-106); Magnesium 2.4 mg/dL (1.6-2.6); Potassium 4.3 mmol/L (3.5-5.1); Protein, Total 7.9 g/dL (6.4-8.2); Sodium Level 137 mmol/L (136-145); Thyroid Stim Hormone (TSH) 2.77 uIU/mL (0.358-3.74)
== END | disposition home or self-care (01) ==
LOC: MTLAB 10:02
PROVIDERS: PCP Family Medicine; Referring Provider Family Medicine; Visit Provider Family Medicine
DX: R00.2 Palpitations (principal)
CPT/HCPCS: 36415; 80053; 83735; 84443; 85027

== ENCOUNTER 2021-12-21 00:37 | Emergency (ER) | payer MEDICARE, OTHER, SELFPAY ==
[2021-12-21 00:38] VITALS: BP 184/97; PULSE 86; RESP 11; TEMP 36.2; O2SAT 98; BMI 29.9
--- NOTE | 2021-12-21 00:59 | EKG12_ITS ---
Test Reason : palptations Blood Pressure : / mmHG Vent. Rate : 080 BPM Atrial Rate : 080 BPM P-R Int : 182 ms QRS Dur : 090 ms QT Int : 386 ms P-R-T Axes : 050 -04 043 degrees QTc Int : 445 ms Sinus rhythm with occasional Premature ventricular complexes Minimal voltage criteria for LVH, may be normal variant ( R in aVL ) Borderline ECG Confirmed by ELIECER MICHAUD, JESSICA ([id number]), website/blog editor SAL CALDERON ([id number]) on 12/21/2021 2:01:59 PM Referred By: Confirmed By:JESSICA GONZÁLES MD
[2021-12-21 01:08] LABS: Absolute Lymphocyte Count 2.88 X10^3/uL (0.83-4.51); Absolute Neutrophil Count 2.8 X10^3/uL (2.0-7.7); Basophil# 0.09 X10^3/uL; Basophil% 1.3 % (0-1); Eosinophil# 0.27 X10^3/uL; Hematocrit 39.8 % (40-54); Hemoglobin 14.1 g/dL (13.0-16.5); Lymphocyte # 2.88 X10^3/ul (0.83-4.51); Lymphocyte % 42.9 % (19-41); Mean Corp Hgb Conc 35.4 g/dL (32-36); Mean Corpuscular Hgb 33.5 pg (27.0-32.0); Mean Corpuscular Volume 94.5 fL (80-94); Mean Platelet Vol. 9.7 fl (6.2-12.0); Monocyte# 0.69 X10^3/uL; Monocyte% 10.3 % (0-10); NRBC Flagged by Analyzer 0 % (0-5); Neutrophil # 2.77 X10^3/uL (2.7-7.7); Neutrophil % 41.2 % (47-70); Platelet Count 263 K/mm3 (150-450); RBC Distribution Width CV 11.7 % (11.6-14.6); RBC Distribution Width SD 40.4 fl (35.1-43.9); Red Blood Count 4.21 M/mm3 (4.6-6.2); White Blood Count 6.7 K/mm3 (4.4-11.0)
[2021-12-21 01:20] LABS: Anion Gap 7 (5-15); BUN 13 mg/dL (7-18); BUN/Creat Ratio 16.8 RATIO (10-20); Calcium,Total 9.3 mg/dL (8.5-10.1); Chloride 103 mmol/L (98-107); Creatinine, Serum 0.77 mg/dL (0.70-1.30); EST Glomerular Filtration Rate 106 mL/min (>60); Est Glom Filt Rate - Afr Amer 128 mL/min (>60); Estimated Creatinine Clearance 69.72 ml/min; Glucose 184 mg/dL (74-106); Magnesium 2.4 mg/dL (1.6-2.6); Potassium 3.9 mmol/L (3.5-5.1); Sodium Level 138 mmol/L (136-145)
--- NOTE | 2021-12-21 01:32 | EX.ED.DYSGE1 ---
HPI History of Present Illness Chief Complaint: Palpitations Informant: patient Narrative Narrative: Patient complains of palpitations. He states that he started getting more notable about a month or so ago. He has seen his physician. He has a 2-week rn cardiac scheduled to be placed in the morning. He came in because he was just having a lot more of these palpitations tonight. He states he feels like he skips a beat and then his heart goes back to normal. That is the only symptom he has. He does not get lightheaded or dizzy. He has never been nauseated or vomited, short of breath, chest pain pressure or tightness. He feels fine. It sounds like he is not taking any caffeine, tea, antihistamines or decongestants or nasal sprays. He has been getting reasonable sleep. No marked change in stress. He is diabetic but has generally been well controlled. He states he feels fine is just that these missed beats are somewhat annoying when he is trying to sleep. [facility] Medical History no medical history Home Medications insulin glargine U-300 conc 300 unit/mL (3 mL) subcutaneous pen 40 unit SQ DAILY 08/21/20 [History Last Taken Unknown] Allergy/AdvReac Type Severity Reaction Status Date / Time bee venom protein (honey bee) Allergy Swelling Verified 12/21/21 00:41 Social History Smoking Status: Never smoker ROS ROS ED Constitutional Constitutional ED: Denies chills, fever(s) or sweats Eyes Eyes: Denies blurry vision ENT ENT ED: Denies rhinorrhea or sore throat Cardiovascular Cardiovascular: Reports palpitations; Denies chest pain, orthopnea, paroxysmal nocturnal dyspnea or racing heartbeat Respiratory/Chest Respiratory/Chest: Denies cough, dyspnea, dyspnea on exertion, orthopnea, paroxysmal nocturnal dyspnea or sputum Gastrointestinal Gastrointestinal: Denies nausea or vomiting Genitourinary Genitourinary ED: Denies hematuria Musculoskeletal Musculoskeletal: Denies back pain or neck pain Integumentary Denies rash Neurologic Neurologic: Denies headache(s), paresthesias or weakness Endocrine Endocrinology: Denies polydipsia or polyuria Hematologic/Lymphatic Hematologic/Lymphatic: Denies anemia Allergic/Immunologic Allergic/Immunologic ED: Denies urticaria EXAM Physical Exam Const Vital Signs: 12/21/21 00:38 12/21/21 00:47 Temperature 97.2 F L Temperature Source Temporal Pulse Rate 86 Respiratory Rate 11 L Respiratory Effort Normal Non-Labored Blood Pressure 184/97 H Blood Pressure Mean 126 Pulse Ox 98 Oxygen Delivery Method Room Air Positive well nourished and well developed General Appearance ED: well developed and NAD; Negative for pallor HEENT Reports moist mucous membranes Eyes EOMs intact bilaterally General Eye ED: Negative for scleral icterus Neck supple and no JVD Chest Wall inspection of chest normal and palpation of chest normal Resp normal respiratory effort and clear to auscultation bilaterally Effort and Inspection: Negative for pain with movement Auscultation: Negative for rales, rhonchi or wheezes Cardio regular rate, regular rhythm and no murmurs Rhythm: other Other Details: Patient does have a normal sinus rhythm with what appears to be occasional PACs. He has a compensatory pause. They do look to be narrow complex. They certainly could be PVCs but they look more consistent with PACs. GI normal to inspection, nondistended, normoactive bowel sounds and non-tender Back/Spine no CVA tenderness Extremity normal to inspection Extremity Narrative: No edema cords or asymmetry. General Extremety ED: Negative for edema or tenderness General Extremity: Negative for edema Neuro oriented x3 Psych mental status grossly normal Skin no rashes or lesions noted General Skin Exam: Negative for jaundice or pallor MDM MDM MDM Narrative Medical decision making narrative: I did do blood work to make sure there were not signs of anemia. Also, his electrolytes look good including calcium magnesium and potassium. Glucose was a little bit elevated at 184. Every time the patient has symptoms I see a PAC or possible PVC on the monitor. These correlate with his symptoms. I discussed getting a Holter monitor on tonight but the best I can do would be likely a 24-hour monitor when he is set up for a 2-week monitor in the morning. We agreed that he will get that monitor in the morning. I explained that there is no acute therapy that I can provide that would stop these tonight. These generally are nonpathologic. I think it is reasonable that we get the Holter monitor to get the whole story of rhythms that he is having. He will then be seeing his primary physician and/or cardiology again. If he develops any symptoms such as pain lightheadedness shortness of breath or otherwise he should return in the meantime Lab Data Attestation: I reviewed the patient's lab results. Labs: Laboratory Results - last 24 hr 12/21/21 12/21/21 00:45 00:45 WBC 6.7 RBC 4.21 L Hgb 14.1 Hct 39.8 L MCV 94.5 H MCH 33.5 H MCHC 35.4 RDW Std Deviation 40.4 RDW Coeff of Justina 11.7 Plt Count 263 MPV 9.7 Immature Gran % (Auto) 0.300 Neut % (Auto) 41.2 L Lymph % (Auto) 42.9 H Sublette % (Auto) 10.3 H Eos % (Auto) 4.0 Baso % (Auto) 1.3 H Absolute Neuts (auto) 2.8 Absolute Lymphs (auto) 2.88 Nucleated RBC % 0 Sodium 138 Potassium 3.9 Chloride 103 Carbon Dioxide 28.0 Anion Gap 7 BUN 13 Creatinine 0.77 Estim Creat Clear Calc 69.72 Est GFR (MDRD) Af Amer 128 Est GFR (MDRD) Non-Af 106 BUN/Creatinine Ratio 16.8 Glucose 184 H Calcium 9.3 Magnesium 2.4 EKG Initial EKG: Comments: EKG done for palpitations read by me shows a normal sinus rhythm with overall rate of 80. There are occasional PVCs. These are unifocal. No acute ST elevation or depression. PA interval, QRS duration and QTc are overall normal. Discharge Plan Triage Chief Complaint: Palpitations ED Provider: Beck Duncan Dx/Rx/DC Orders Clinical Impression: Palpitations, Frequent PVCs Instructions: ED Palpitations Prescriptions: No Action insulin glargine U-300 conc 300 UNIT/ML insulin pen 40 unit SQ DAILY Primary Care Provider: Luis Martinez Referrals: Luis Martinez MD [Primary Care Provider] - [facility] appointment Disposition Disposition: Home, Self Care
[2021-12-21 02:00] VITALS: BP 139/75; PULSE 75; RESP 14; O2SAT 96
== END 2021-12-21 02:00 | disposition home or self-care (01) ==
PROVIDERS: Emergency Provider Emergency Medicine; PCP Family Medicine; Visit Provider Emergency Medicine
DX: R00.2 Palpitations (principal); E11.9 Type 2 diabetes mellitus without complications; Z79.4 Long term (current) use of insulin; I49.3 Ventricular premature depolarization
CPT/HCPCS: 80048; 83735; 85025; 93005; 99283; A4216

== ENCOUNTER 2022-12-22 18:22 | Emergency (ER) | payer MEDICARE, OTHER, SELFPAY ==
[2022-12-22] VITALS (9 sets, daily range): BP systolic 76–173; BP diastolic 35–106; PULSE 73–105; RESP 5–25; TEMP 36.6; O2SAT 92–98; BMI 30.9
[2022-12-22] MEDS: Epi Pen (EQUIV) 0.3 MG Syringe IM (18:22)
[2022-12-22] MEDS: dexAMETHasone 10 MG/ML Vial IV (18:26)
[2022-12-22] MEDS: Ondansetron 4 MG/2 ML Vial IV (18:28)
[2022-12-22] MEDS: DiphenhydrAMINE 50 MG/ML Syringe IV (18:31)
[2022-12-22] MEDS: Famotidine 200 MG/20 ML MDV 20 MG in 0.9% Normal Saline (Pres. free 8 ML 300 MG IV (18:32)
[2022-12-22] MEDS: 0.9% Normal Saline 1,000 ML 999 ML IV (18:33)
--- NOTE | 2022-12-22 19:02 | EDS_ITS ---
HPI History of Present Illness Chief Complaint: Allergic Reaction Informant: patient and spouse/S.O. Narrative Narrative: Called to room 1 for bee sting anaphylaxis. Stung in right wrist 1/2-hour ago spouse brought him here clammy. Denies tongue or lip swelling. Last bee sting in 2006 with no anaphylaxis. He has no cardiac history. He is a diabetic on insulin. Prior similar symptoms: No PFSH PFSH Home Medications insulin glargine U-300 conc 300 unit/mL (3 mL) subcutaneous pen 40 unit SQ DAILY 08/21/20 [History Last Taken Unknown] epinephrine 0.3 mg/0.3 mL injection, auto-injector (EpiPen 2-Con) 0.3 mg (0.3 mL) IM Q4H PRN anaphylaxis #2 ea 12/22/22 [Rx Last Taken Unknown] famotidine 20 mg tablet 20 mg PO BID #10 TABLETS 12/22/22 [Rx Last Taken Unknown] Allergy/AdvReac Type Severity Reaction Status Date / Time bee venom protein (honey bee) Allergy Swelling Verified 12/21/21 00:41 Social History Smoking Status: Never smoker ROS ROS ED Constitutional Constitutional ED: Denies chills, fever(s) or sweats Eyes Eyes: Denies change in vision ENT ENT ED: Denies dysphagia or sore throat Cardiovascular Cardiovascular: Denies chest pain, leg edema, palpitations or racing heartbeat Respiratory/Chest Respiratory/Chest: Denies cough, dyspnea or dyspnea on exertion Gastrointestinal Gastrointestinal: Reports nausea; Denies abdominal pain, diarrhea or vomiting Genitourinary Genitourinary ED: Denies dysuria, hematuria or urinary frequency Musculoskeletal Musculoskeletal: Denies back pain, extremity pain or neck pain Integumentary Denies rash or wounds Neurologic Neurologic: Denies headache(s), paresthesias or weakness EXAM Physical Exam Const Vital Signs: 12/22/22 18:34 12/22/22 18:36 12/22/22 18:39 Temperature 97.9 F Temperature Source Oral Pulse Rate 91 73 Respiratory Rate 5 L 25 H Respiratory Depth Shallow Respiratory Pattern Bradypnea Blood Pressure 76/35 L 85/44 L Blood Pressure Mean 48 57 Pulse Ox 98 97 Oxygen Delivery Method Room Air Nasal Cannula Non-Rebreather Oxygen Flow Rate (L/min) 4 15 12/22/22 18:42 12/22/22 18:58 12/22/22 19:58 Temperature Temperature Source Pulse Rate 94 94 105 H Respiratory Rate 19 H 16 18 Respiratory Depth Respiratory Pattern Blood Pressure 160/106 H 173/72 H 129/67 H Blood Pressure Mean 124 105 87 Pulse Ox 97 95 92 Oxygen Delivery Method Nasal Cannula Room Air Room Air Oxygen Flow Rate (L/min) 2 12/22/22 20:59 12/22/22 21:45 12/22/22 22:24 Temperature Temperature Source Pulse Rate 96 88 81 Respiratory Rate 18 19 H 20 H Respiratory Depth Respiratory Pattern Blood Pressure 127/66 H 137/74 H Blood Pressure Mean 86 95 Pulse Ox 93 93 93 Oxygen Delivery Method Nasal Cannula Room Air Room Air Oxygen Flow Rate (L/min) 1 Positive well nourished and well developed Constitutional Narrative: Patient diffusely clammy and sweaty, eyes closed however following some commands. General Appearance ED: well developed HEENT Reports moist mucous membranes HEENT Narrative: No swelling of tongue or lips. No stridor. normocephalic and atraumatic Eyes PERRL, EOMs intact bilaterally and conjunctivae normal General Eye ED: Yes normal appearance of both eyes Neck no lymphadenopathy and supple General: Negative for tenderness Chest Wall Chest: Negative for tenderness Resp normal respiratory effort and normal air movement Effort and Inspection: symmetric chest movement; Negative for respiratory distress Cardio regular rate, regular rhythm and no murmurs Peripheral Pulses: pulses 2+ throughout GI normal to inspection, nondistended, normoactive bowel sounds and non-tender Palpation: Negative for guarding or rebound tenderness present Back/Spine no CVA tenderness and no thoracic nor lumbar tenderness Extremity normal to inspection General Extremety ED: Negative for edema or tenderness General Extremity: Negative for edema Neuro no sensory deficits noted Sensorium / Orientation: awake and alert Skin Skin Narrative: Right volar aspect wrist small urticarial lesion with puncture site there is no stinger present MDM MDM MDM Narrative Medical decision making narrative: Interventions / MDM: Differential diagnosis: Diagnosis considered but do not suspect: N/A My EKG interpretation: N/A Imaging independently reviewed and interpreted by myself: N/A External documents reviewed: N/A Test considered but not ordered:N/A ED course: Patient with bee sting anaphylaxis. Epinephrine initial temp by nursing left upper leg, removed with needle bent. Therefore additional 1 was used and placed by myself in the right lower thigh. IV was established. There is no immediate Solu-Medrol, therefore dexamethasone 10 mg IV Pepcid and Benadryl ordered through the IV. Blood pressure was 76/35, liter IV fluids was ordered. Shortly after became nauseated, has a friend at her. He will be monitored. 1909: Blood pressure systolic 150, currently have some shivers in the room. IV fluids running. Blankets were given. We will continue to monitor. 2024: Blood pressure 129/67 clinically no more shivers. Remaining stable. He is weaned down to 2 L nasal cannula. 2219: Blood pressure stable 130s. Clinically remains asymptomatic. Will wean off oxygen will monitor. 2319: Patient monitor off oxygen no dyspnea no hypoxia blood pressure remained stable. Clinically stable throughout. Discharge prescription for additional Pepcid he will use Benadryl as needed for itching. Epinephrine pen to his pharmacy. He will monitor his glucose due to be given dexamethasone. Outpatient follow-up with return precautions. Re-evaluation: stable Disposition discussed with patient/family/significant other: Patient and family Case discussed with consulting clinician: N/A This note was generated with [employer] dictation software. It may contain incorrect words, spelling, and punctuation that were not noted in checking the note before signing. Critical Care Time Critical Care Time: Yes Critical care time (excluding procedures): 30-74 minutes, Discussing w/Patient &/or Family/Group Managing Director, Discussing w/Consultants, Arranging Admission or Transfer, Performing Direct Patient Care at Bedside and - (60 minutes) Discharge Plan Triage Chief Complaint: Allergic Reaction ED Provider: Serge Rodriguez Dx/Rx/DC Orders Clinical Impression: Acute anaphylaxis, Bee sting-induced anaphylaxis, History of diabetes mellitus, Hypotension Instructions: ED BEE STING General Allergic Rxn, ED Anaphylaxis Prescriptions: New famotidine [famotidine] 20 mg tablet 20 mg PO BID Qty: 10 0RF epinephrine [EpiPen 2-Con] 0.3 mg/0.3 mL auto-injector 0.3 mg IM Q4H PRN (Reason: anaphylaxis) Qty: 2 0RF No Action insulin glargine U-300 conc 300 UNIT/ML insulin pen 40 unit SQ DAILY Primary Care Provider: Luis Martinez Referrals: Luis Martinez MD [Primary Care Provider] - 1-2 Weeks Activity Restrictions/Additional Instructions: You had anaphylaxis to bee sting your blood pressure was low which improved with fluids. You are given epinephrine and dexamethasone IV. Your sugar will be elevated. Continue Pepcid twice a day for itching May continue Benadryl every 6 hours as needed 25 to 50 mg. You are provided epinephrine pens to use if it recurs. If symptoms worsen or recurs return for reevaluation. Disposition Disposition: Home, Self Care
[2022-12-23 07:19] LABS: Bedside Glucose 222 mg/dL (74-106)
== END 2022-12-22 23:24 | disposition home or self-care (01) ==
PROVIDERS: Emergency Provider Emergency Medicine; PCP Family Medicine; Visit Provider Emergency Medicine
DX: T63.444A Toxic effect of venom of bees, undetermined, initial encounter (principal); E11.9 Type 2 diabetes mellitus without complications; Z79.4 Long term (current) use of insulin; I95.9 Hypotension, unspecified
CPT/HCPCS: 82962; 96365; 96366; 96375; 99283; J7030; A4216; J2405; J3490

== ENCOUNTER 2023-06-16 16:21 | Emergency (ER) | payer MEDICARE, OTHER, SELFPAY ==
[2023-06-16 16:21] VITALS: BP 148/69; PULSE 94; RESP 18; TEMP 36.3; O2SAT 97; BMI 31.0
--- NOTE | 2023-06-16 16:45 | EDS_ITS ---
HPI <JUANY Alvarado - Last Filed: 06/16/23 18:47> History of Present Illness Chief Complaint: Upper Extremity Injury Narrative Narrative: Patient is a 73-year-old male with history of type 2 diabetes and takes insulin presenting to the emerged part with 2 days of worsening right wrist, right forearm pain. Patient states he fell 2 weeks ago, however no specific pain then. Patient dates the last 24 to 48 hours, is having more redness, edema, having worsening pain with movement. He denies any fever chills nausea or vomiting. [place] any specific injury. PFSH <JUANY Alvarado - Last Filed: 06/16/23 18:47> PFSH Home Medications insulin glargine U-300 conc 300 unit/mL (3 mL) subcutaneous pen 40 unit SQ DAILY 08/21/20 [History Last Taken Unknown] epinephrine 0.3 mg/0.3 mL injection, auto-injector (EpiPen 2-Con) 0.3 mg (0.3 mL) IM Q4H PRN anaphylaxis #2 ea 12/22/22 [Rx Last Taken Unknown] famotidine 20 mg tablet 20 mg PO BID #10 TABLETS 12/22/22 [Rx Last Taken Unknown] cephalexin 500 mg capsule 500 mg PO Q6 #40 CAPSULES 06/16/23 [Rx Last Taken Unknown] naproxen 500 mg tablet (Naprosyn) 500 mg PO BID PRN pain #20 tabs 06/16/23 [Rx Last Taken Unknown] oxycodone-acetaminophen 5 mg-325 mg tablet (Percocet) 1 tab PO Q8H PRN pain 3 days #10 tabs 06/16/23 [Rx Last Taken Unknown] Allergy/AdvReac Type Severity Reaction Status Date / Time bee venom protein (honey bee) Allergy Swelling Verified 06/16/23 16:21 Social History Smoking Status: Never smoker ROS <JUANY Alvarado - Last Filed: 06/16/23 18:47> ROS ED ROS Narrative Constitutional: Negative for fever, chills, weight loss, weakness Eyes: Negative for vision loss, vision change, double vision ENT: Negative for any sore throat, ear pain, congestion Cardiovascular: Negative for any chest pain, tightness, palpitations Respiratory: Negative for any cough, sputum production, hemoptysis, dyspnea, dyspnea on exertion, orthopnea Gastrointestinal: Negative for any abdominal pain, nausea, vomiting, diarrhea, constipation, blood in stool, blood in vomit : Negative for any urinary frequency, dysuria, retention, blood in urine Muscle skeletal: Negative for any myalgias, arthralgias, neck pain, back pain. Positive for right wrist, right thumb pain Neurological: Negative for any headache, syncope, paresthesias, dizziness Skin: Negative for any rashes, lumps, itching, abrasions, lacerations Psychiatric: Negative for any depression, anxiety, stress, suicidal ideation, homicidal ideation Hematologic: Negative for any easy bruising, excessive bruising, easy bleeding Allergies: Negative for any eczema, hives, rash EXAM <JUANY Alvarado - Last Filed: 06/16/23 18:47> Physical Exam Narrative Exam Narrative: Vital signs reviewed. HEET: Head normocephalic atraumatic, TMs clear bilaterally. Posterior pharynx is clear, moist mucous membranes. Nares clear bilaterally. Neck: Supple with no lymphadenopathy or tenderness. No signs of meningismus. Cardiac: Regular rate and rhythm no murmurs gallops or rubs, equal peripheral pulses bilaterally. Respiratory: Lungs clear to auscultation bilaterally. No chest tenderness. Abdomen: Soft, nontender, nondistended. No abdominal bruit or pulsatile masses. No hepatosplenomegaly Extremities: Patient does have some erythema, edema along the radial aspect of the right wrist. This does extend into the first joint of the right thumb. Patient is able to flex and extend the wrist, is able to flex and extend the thumb of the joint. Patient does have some pain on palpation is warm to the touch. +2 radial pulse. No evidence of any fracture, ecchymosis. Neuro: Cranial nerves II through XII intact, no focal neurological deficits. Skin: Clean dry and intact with no rash, purpura, petechiae, vesicles or pustules. Backs/flank: No CVA tenderness, no midline spinal tenderness, no deformity. Psych: Normal mood and affect. No SI, HI or acute psychosis. Const Vital Signs: 06/16/23 16:21 Temperature 97.3 F L Temperature Source Temporal Pulse Rate 94 Respiratory Rate 18 Blood Pressure 148/69 H Blood Pressure Mean 95 Pulse Ox 97 Oxygen Delivery Method Room Air Positive well nourished and well developed General Appearance ED: well developed [facility] <JUANY Alvarado - Last Filed: 06/16/23 18:47> [facility] Treatment and Re-Evaluation Narrative: Patient appears to be in slight discomfort to his right wrist. Presenting to the emerged part for 2 days of redness, worsening pain. Differential diagnose includes cellulitis, de Quervain's tenosynovitis, septic joint. Patient did receive x-rays of both the right hand and the right wrist, right hand show degenerative changes, no fracture or dislocation. Right wrist showed mildly degenerative change, no acute fracture or dislocation. Tiny metallic foreign body with soft tissues of the dorsal surface of the distal forearm. Patient will receive some basic laboratory values including CBC, BMP, lactic, CRP, sed rate. Patient was given oral Percocet. Patient's laboratory values show a normal CBC with with a white blood count 9.9, sed rate was 24, CRP was elevated at 73.6. However patient has good movement of the right wrist, right thumb, I do not believe this is a septic joint. At this time, I spoke with the patient at length. The patient will be covered with Keflex, 4 times a day for 10 days, patient be given naproxen as well as Percocet for breakthrough pain. He will be given a thumb spica. He is instructed to return for any worsening redness fever chills nausea or vomiting. All questions were answered, patient stable for discharge. At this time, patient be diagnosed with cellulitis, wrist sprain, inflammatory spots. Strict return precautions given. Spoke with the as well. <Dr. Moi Prasad DO - Last Filed: 06/16/23 22:23> [facility] Narrative Medical decision making narrative: Patient appears to be in slight discomfort to his right wrist. Presenting to the emerged part for 2 days of redness, worsening pain. Differential diagnose includes cellulitis, de Quervain's tenosynovitis, septic joint. Patient did receive x-rays of both the right hand and the right wrist, right hand show degenerative changes, no fracture or dislocation. Right wrist showed mildly degenerative change, no acute fracture or dislocation. Tiny metallic foreign body with soft tissues of the dorsal surface of the distal forearm. Patient will receive some basic laboratory values including CBC, BMP, lactic, CRP, sed rate. Patient was given oral Percocet. Patient's laboratory values show a normal CBC with with a white blood count 9.9, sed rate was 24, CRP was elevated at 73.6. However patient has good movement of the right wrist, right thumb, I do not believe this is a septic joint. At this time, I spoke with the patient at length. The patient will be covered with Keflex, 4 times a day for 10 days, patient be given naproxen as well as Percocet for breakthrough pain. He will be given a thumb spica. He is instructed to return for any worsening redness fever chills nausea or vomiting. All questions were answered, patient stable for discharge. At this time, patient be diagnosed with cellulitis, wrist sprain, inflammatory spots. Strict return precautions given. Spoke with the as well. This patient was seen with a PA/[employer] Individually assessed they patient including history and physical. I have reviewed everything on the chart that is available and agree with the documentation provided by the PA[employer] including discussion about the assessment, treatment plan, discussion, and return precautions. Patient seen evaluated for wrist pain. This is not associated with Worker's Comp. The patient fell a couple of weeks ago and did not have any injury. He states he now started to have this redness and pain. Denies any scratches bites etc. No systemic signs or symptoms. He does have some increased redness and warmth over the thumb and wrist but there is no evidence of a septic joint based on examination. This could be tendinitis however given the warmth and redness we did obtain some lab work which is fairly unremarkable. White blood count 9.9. CXR 24. CRP was elevated at 17.6. Given this we will start the patient on antibiotics given Keflex for 10 days. Naprosyn for anti-inflammatories and Percocet for breakthrough pain. Return precautions were discussed. Patient was placed in a thumb spica. Discharged in stable condition. Lab Data Attestation: I reviewed the patient's lab results. Discharge Plan Triage Chief Complaint: Upper Extremity Injury ED Midlevel Provider: Anam Reyes ED Provider: Moi Prasad Dx/Rx/DC Orders Clinical Impression: Cellulitis, Right wrist sprain Instructions: ED Cellulitis, ED Wrist Sprain Prescriptions: New oxycodone-acetaminophen [Percocet] 5-325 mg tablet 1 tab PO Q8H PRN (Reason: pain) 3 Days Qty: 10 0RF cephalexin 500 mg capsule 500 mg PO Q6 Qty: 40 0RF naproxen [Naprosyn] 500 mg tablet 500 mg PO BID PRN (Reason: pain) Qty: 20 0RF No Action insulin glargine U-300 conc 300 UNIT/ML insulin pen 40 unit SQ DAILY famotidine [famotidine] 20 mg tablet 20 mg PO BID Qty: 10 0RF epinephrine [EpiPen 2-Con] 0.3 mg/0.3 mL auto-injector 0.3 mg IM Q4H PRN (Reason: anaphylaxis) Qty: 2 0RF Primary Care Provider: Luis Martinez Referrals: Luis Martinez MD [Primary Care Provider] - Activity Restrictions/Additional Instructions: If you get a fever, the redness gets worse, the pain is unbearable, you need to return back to the emergency department. Use the thumb spica for rest. Again return here for worsening symptoms Disposition Disposition: Home, Self Care Discharge Date/Time: 06/16/23 19:12
--- NOTE | 2023-06-16 16:45 | RAD_ITS ---
STUDY: X-RAY - RIGHT HAND REASON FOR EXAM: Male, 73 years old. pain TECHNIQUE: 4 view(s) of the hand. COMPARISON: None. FINDINGS: Normal radiocarpal articulation. Normal distal radioulnar joint. Normal visualized carpal bones. Normal carpal articulations Normal carpometacarpal articulation of the thumb. Normal second through fifth carpometacarpal joints. Normal metacarpi. Normal metacarpophalangeal joint of the thumb. Normal interphalangeal joint of the thumb. Normal proximal and distal phalanges of the thumb. Normal metacarpophalangeal joints of the second through fifth fingers. Normal proximal interphalangeal joints of the second through fifth fingers. Degenerative changes of the DIP joints Normal phalanges of the second through fifth fingers. The soft tissue structures are unremarkable. RAD/Hand Min 3 Views IMPRESSION: Degenerative changes of the DIP joints. No acute fracture or dislocation Electronically Signed: Nir Kong MD at 17:21 EST ,
--- NOTE | 2023-06-16 16:45 | RAD_ITS ---
STUDY: X-RAY - RIGHT WRIST REASON FOR EXAM: Male, 73 years old. swelling TECHNIQUE: 3 view(s) of the wrist were obtained. COMPARISON: None. FINDINGS: Normal visualized distal radius and ulna. Mildly narrowed radiocarpal articulation. Normal distal radioulnar articulation. Normal carpal bones. Normal carpal articulations. Normal carpometacarpal articulation of the thumb. Normal second through fifth carpometacarpal articulations. Normal visualized metacarpal bones. Radial arterial calcification noted.. Tiny metallic foreign body noted within the soft tissues of the dorsal surface of the distal forearm RAD/Wrist min 3 Views IMPRESSION: Mild degenerative change. No acute fracture or dislocation Tiny metallic foreign body within soft tissues of the dorsal surface of the distal forearm Electronically Signed: Nir Kong MD at 17:23 EST ,
[2023-06-16] MEDS: Oxycodone/Apap 5/325 Tablet PO (16:49)
[2023-06-16 17:59] LABS: Absolute Lymphocyte Count 2.23 X10^3/uL (0.83-4.51); Absolute Neutrophil Count 6.2 X10^3/uL (2.0-7.7); Basophil# 0.07 X10^3/uL; Basophil% 0.7 % (0-1); Eosinophil# 0.25 X10^3/uL; Eosinophils% 2.5 % (0-5); Hemoglobin 12.6 g/dL (13.0-16.5); Lymphocyte # 2.23 X10^3/ul (0.83-4.51); Lymphocyte % 22.4 % (19-41); Mean Corp Hgb Conc 34.1 g/dL (32-36); Mean Corpuscular Hgb 33.2 pg (27.0-32.0); Mean Corpuscular Volume 97.6 fL (80-94); Mean Platelet Vol. 9.6 fl (6.2-12.0); Monocyte# 1.16 X10^3/uL; Monocyte% 11.7 % (0-10); NRBC Flagged by Analyzer 0 % (0-5); Neutrophil % 62.4 % (47-70); Platelet Count 233 K/mm3 (150-450); RBC Distribution Width SD 43.1 fl (35.1-43.9); Red Blood Count 3.79 M/mm3 (4.6-6.2); White Blood Count 9.9 K/mm3 (4.4-11.0)
[2023-06-16 18:06] LABS: Hypersegmented Neutrophils 9.9
[2023-06-16 18:07] LABS: Erythrocyte Sedimentation Rate 24 mm/hr (0-20)
[2023-06-16 18:20] LABS: Anion Gap 5 (5-15); BUN 25 mg/dL (7-18); BUN/Creat Ratio 29.9 RATIO (10-20); Calcium,Total 9.1 mg/dL (8.5-10.1); Chloride 103 mmol/L (98-107); Creatinine, Serum 0.84 mg/dL (0.70-1.30); EST Glomerular Filtration Rate 96 mL/min (>60); Est Glom Filt Rate - Afr Amer 116 mL/min (>60); Estimated Creatinine Clearance 91.86 ml/min; Glucose 273 mg/dL (74-106); Potassium 4.6 mmol/L (3.5-5.1); Sodium Level 137 mmol/L (136-145)
[2023-06-16 18:22] LABS: Lactic Acid 0.8 mmol/L (0.4-1.9)
[2023-06-16] MEDS: Cephalexin 250 MG Capsule 500 MG PO (19:09)
== END 2023-06-16 19:12 | disposition home or self-care (01) ==
PROVIDERS: Nurse Practitioner; Emergency Provider Student in an Organized Health Care Education/Training Program; PCP Family Medicine; Visit Provider Student in an Organized Health Care Education/Training Program
DX: L03.113 Cellulitis of right upper limb (principal); E11.9 Type 2 diabetes mellitus without complications; Z79.4 Long term (current) use of insulin; S63.501A Unspecified sprain of right wrist, initial encounter; X58.XXXA Exposure to other specified factors, initial encounter
CPT/HCPCS: 73110; 73130; 80048; 83605; 85025; 85652; 86140; 99285; A4216

== ENCOUNTER → 2025-03-21 | Outpatient (CLI) | payer MEDICARE, OTHER, SELFPAY ==
[2025-03-21 12:02] LABS: AST(SGOT) 15 U/L (<=37); Alanine Aminotransfer ALT/SGPT 13 U/L (<=46); Albumin, Serum 4.0 g/dL (3.4-4.8); Alkaline Phosphatase 77 U/L (40-129); Anion Gap 10 (5-15); BUN 17 mg/dL (4-19); BUN/Creat Ratio 20.4 RATIO (10-20); Calcium,Total 9.6 mg/dL (7.6-11.0); Carbon Dioxide 27.1 mmol/L (21.0-32.0); Chloride 103 mmol/L (98-108); Cholesterol 223 mg/dL (<=200); Globulin 3.5 g/dL (2.2-4.2); Glucose 185 mg/dL (70-99); Low Density Lipoprotein Calc. 145 mg/dL; PSA,Total - Annual Screen 0.21 ng/mL (0.02-4.00); Potassium 4.5 mmol/L (3.3-5.1); Triglycerides 163 mg/dL; Very Low Density Lipoprotein 33 mg/dL (5-40); cholesterol:hdl ratio screen 4.61
== END | disposition home or self-care (01) ==
LOC: MFPLAB 09:06
PROVIDERS: PCP Family Medicine; Visit Provider Family Medicine
DX: E11.69 Type 2 diabetes mellitus with other specified complication (principal); E11.311 Type 2 diabetes mellitus with unspecified diabetic retinopathy with macular edema; Z12.5 Encounter for screening for malignant neoplasm of prostate
CPT/HCPCS: 36415; 80053; 80061; 84153; 84403; 84443; G0103